=== PATIENT | male | born 1955 | race Hispanic/Latino ===

== ENCOUNTER 2018-03-10 10:41 | Day surgery (SDC) | payer MEDICARE ==
[2018-03-05 08:47] VITALS: BP 116/58
[2018-03-05 08:57] LABS: BASOPHILS % (AUTO) 0.9 % (0.0-5.0); HEMATOCRIT 37.2 % (42-54); LYMPHOCYTES % (AUTO) 22.8 % (21.0-51.0); MEAN CORPUSCULAR HEMOGLOBIN 28.1 pg (27.0-33.0); MEAN CORPUSCULAR HGB CONC 34.7 g/dL (32.0-36.0); MEAN CORPUSCULAR VOLUME 81.1 fL (79-99); MONOCYTES % (AUTO) 11.7 % (3.0-13.0); NEUTROPHILS % (AUTO) 61.6 % (40.0-77.0); PLATELET COUNT (AUTO) 51 K/uL (130-400); RED BLOOD CELL COUNT(AUTO) 4.58 MIL/uL (4.50-6.20); RED CELL DISTRIBUTION WIDTH 17.6 % (11.0-15.5); WHITE BLOOD COUNT (AUTO) 3.3 K/uL (4.8-10.8)
[2018-03-05 09:03] LABS: APPEARANCE,URINE Clear (CLEAR); BILIRUBIN,URINE Negative (NEGATIVE); COLOR,URINE Dark Yellow (YELLOW); GLUCOSE, URINE (UA) >=1000 mg/dL (NEGATIVE); KETONES,URINE Negative (NEGATIVE); LEUKOCYTE ESTERASE ,URINE Negative (NEGATIVE); NITRATE,URINE Negative (NEGATIVE); OCCULT BLOOD,URINE Trace (NEGATIVE); PROTEIN,URINE Negative (NEGATIVE)
[2018-03-05 09:04] LABS: CREATININE 0.7 mg/dL (0.5-1.5)
[2018-03-05 09:09] LABS: INR 1.17 (0.85-1.15); PARTIAL THROMBOPLASTIN TIME 30.6 SEC (26.3-35.5); PROTHROMBIN TIME 12.2 SEC (9.6-11.6)
[2018-03-05 09:41] LABS: PLATELET MORPHOLOGY COMMENT DECREASED
[2018-03-05 10:15] LABS: BACTERIA,URINE Few /HPF (None Seen); RBC,URINE 0-1 /HPF (0-1); SQUAMOUS EPITHELIAL CELL,UR 0-2 /HPF (0-2); WBC,URINE 0-1 /HPF (0-1)
[2018-03-10] VITALS (10 sets, daily range): BP systolic 100–122; BP diastolic 48–60
[~2018-03-10] VITALS: Ht 172.7 cm; Wt 112.9 kg
[~2018-03-10 10:41] MED LIST: ASPI-555 PO; BUSP10TA3 PO; CARV25TA PO; CLOT15C TP; FLUO20CA30 PO; FURO40TA7 PO; INSU100C14 SQ; INSU100I24 SQ; ISOS30TA6 PO; LATA2.5D15 OP; NITR0.4T50 SL; SPIR50TA5 PO; TRAM50TA4 PO
[2018-03-10] MEDS ORDERED: IOPAMIDOL-370 100 ML VIAL IV ONE (12:02)
[2018-03-10] MEDS ORDERED: ISOVUE-370 50ML VIAL IV ONE (12:02)
[2018-03-10] MEDS ORDERED: HEPARIN SODIUM 1000UNIT/ML 10ML VIAL ONE (12:02)
[2018-03-10] MEDS ORDERED: NITROGLYCERIN 5 MG/ML 10 ML VIAL IV ONE (12:02)
[2018-03-10] MEDS ORDERED: LIDOCAINE HCL 2% 20ML ONE (12:02)
[2018-03-10] MEDS ORDERED: TRULICITY SQ (12:05)
[2018-03-10] MEDS: SODIUM CHLORIDE 0.9% 1000ML 1,000 ML IV SCH (12:12)
[2018-03-10] MEDS ORDERED: DEXTROSE 50%-WATER 50 ML DISP.SYRIN IV PRN (13:15)
[2018-03-10] MEDS ORDERED: GLUCAGON 1MG KIT 1 MG ML IM PRN (13:15)
[2018-03-10] MEDS: INSULIN HUMULIN R 100 UNIT/ML 3ML ONE (13:47)
== END 2018-03-10 16:39 | disposition home or self-care (01) ==
LOC: DAH 10:41
PROVIDERS: ATTEND Internal Medicine Cardiovascular Disease
DX: I25.10 Atherosclerotic heart disease of native coronary artery without angina pectoris (principal); I25.82 Chronic total occlusion of coronary artery; I35.0 Nonrheumatic aortic (valve) stenosis; I10 Essential (primary) hypertension; E78.5 Hyperlipidemia, unspecified; K74.60 Unspecified cirrhosis of liver; I87.2 Venous insufficiency (chronic) (peripheral); D64.9 Anemia, unspecified; Z79.899 Other long term (current) drug therapy; Z79.82 Long term (current) use of aspirin; Z90.49 Acquired absence of other specified parts of digestive tract; Z98.890 Other specified postprocedural states
CPT/HCPCS: 36415; 71045; 80048; 81001; 82948; 85025; 85610; 85730; 93005; 93458; A4606; C1760; C1769; C1894; J1644; J1815; J3490; J7030; Q9967

== ENCOUNTER → 2018-11-26 | Outpatient (CLI) | payer MEDICARE ==
[~2018-11-26] MED LIST changes: +TRULICITY SQ
== END | disposition home or self-care (01) ==
LOC: RAH 09:53
PROVIDERS: ATTEND Internal Medicine
DX: I11.9 Hypertensive heart disease without heart failure (principal); I35.0 Nonrheumatic aortic (valve) stenosis
CPT/HCPCS: 93306

== ENCOUNTER → 2018-12-27 | Outpatient (CLI) | payer MEDICARE | END | disposition home or self-care (01) | LOC: RAH 12-23 08:42 | PROVIDERS: ATTEND Internal Medicine | DX: R16.1 Splenomegaly, not elsewhere classified (principal); Z90.49 Acquired absence of other specified parts of digestive tract | CPT/HCPCS: 76700; 93975 ==

== ENCOUNTER 2019-01-11 05:30 | Day surgery (SDC) | payer MEDICARE ==
[~2019-01-11] VITALS: Ht 172.7 cm; Wt 109.8 kg
[~2019-01-11 05:30] MED LIST changes: -CLOT15C TP; -FLUO20CA30 PO; -INSU100C14 SQ; -INSU100I24 SQ; +INSU300I SQ; -ISOS30TA6 PO; +LACT10SO8 PO; -LATA2.5D15 OP; -SPIR50TA5 PO; -TRAM50TA4 PO
[2019-01-11] MEDS ORDERED: SODIUM CHLORIDE 0.9% 1000ML 1,000 ML IV ONE (05:46)
[2019-01-11 05:59] VITALS: BP 125/55
[2019-01-11] MEDS ORDERED: BUPR300T54 PO (06:12)
[2019-01-11] MEDS ORDERED: PROPOFOL 1000 MG/100 ML 100 ML IV ONE (07:04)
[2019-01-11] MEDS ORDERED: PHENYLEPHRINE HCL 10 MG/ML 1ML VIAL IV ONE (07:22)
[2019-01-11 07:33] VITALS: BP 87/43
[2019-01-11 07:37] VITALS: BP 118/58
[2019-01-11 07:38] VITALS: BP 111/61
[2019-01-11 07:43] VITALS: BP 113/55
[2019-01-11 07:50] VITALS: BP 120/63
[2019-01-15] MEDS ORDERED: BISA5TAB12 PO (22:22)
[2019-01-15] MEDS ORDERED: FURO40TA5 PO (22:22)
[2019-01-15] MEDS ORDERED: BUPR300T54 PO (22:22)
[2019-01-15] MEDS ORDERED: BUSP5TAB3 PO (22:22)
[2019-01-15] MEDS ORDERED: ASPI-555 PO (22:22)
[2019-01-15] MEDS ORDERED: LACT10SO32 PO (22:22)
[2019-01-15] MEDS ORDERED: CARV25TA PO (22:22)
[2019-01-17] MEDS ORDERED: CARV12.511 PO (15:04)
== END 2019-01-11 08:15 | disposition home or self-care (01) ==
LOC: ENDO 05:30 → DAH 05:30 → ENDO 08:15
PROVIDERS: ATTEND Internal Medicine
DX: K63.5 Polyp of colon (principal); K64.9 Unspecified hemorrhoids; K57.30 Diverticulosis of large intestine without perforation or abscess without bleeding; K63.89 Other specified diseases of intestine; K74.60 Unspecified cirrhosis of liver; K31.89 Other diseases of stomach and duodenum; K29.50 Unspecified chronic gastritis without bleeding; K55.9 Vascular disorder of intestine, unspecified; E78.5 Hyperlipidemia, unspecified; I25.10 Atherosclerotic heart disease of native coronary artery without angina pectoris; E11.9 Type 2 diabetes mellitus without complications; D64.9 Anemia, unspecified; I10 Essential (primary) hypertension; Z79.899 Other long term (current) drug therapy
CPT/HCPCS: 43239; 45380; 82948 ×2; 88305; 93005; A4606; J2370; J2704; J7030; 43249

== ENCOUNTER → 2019-08-30 | Outpatient (CLI) | payer MEDICARE ==
[~2019-08-30] MED LIST changes: +BISA5TAB12 PO; +BUPR300T54 PO; -BUSP10TA3 PO; +BUSP5TAB3 PO; +CARV12.511 PO; -CARV25TA PO; -FURO40TA7 PO; -INSU300I SQ; +LACT10SO32 PO; -LACT10SO8 PO; -NITR0.4T50 SL; -TRULICITY SQ
== END | disposition home or self-care (01) ==
LOC: RAH 13:01
PROVIDERS: ATTEND Internal Medicine
DX: S52.502A Unspecified fracture of the lower end of left radius, initial encounter for closed fracture (principal); S52.612A Displaced fracture of left ulna styloid process, initial encounter for closed fracture; M19.032 Primary osteoarthritis, left wrist; M19.022 Primary osteoarthritis, left elbow; M19.042 Primary osteoarthritis, left hand; S62.92XD Unspecified fracture of left hand, subsequent encounter for fracture with routine healing; X58.XXXA Exposure to other specified factors, initial encounter; Y93.89 Activity, other specified; Y92.89 Other specified places as the place of occurrence of the external cause; Y99.8 Other external cause status
CPT/HCPCS: 73080; 73090; 73110; 73130

== ENCOUNTER 2019-12-20 10:51 | Observation (INO) | payer MEDICARE, OTHER ==
[~2019-12-20] VITALS: Ht 172.7 cm; Wt 107.9 kg
[~2019-12-20 10:51] MED LIST changes: -ASPI-555 PO; +ASPI-556 PO; +BUPR-317 PO; -BUPR300T54 PO
[2019-12-20] MEDS ORDERED: ZOSYN 3.375GM+NS 50ML 50 ML IV ONE (12:18)
[2019-12-20 12:28] LABS: BASOPHILS % (AUTO) 0.3 % (0.0-5.0); EOSINOPHILS % (AUTO) 2.6 % (0.0-8.0); HEMATOCRIT 34.6 % (42-54); LYMPHOCYTES % (AUTO) 16.8 % (21.0-51.0); MEAN CORPUSCULAR HEMOGLOBIN 25.6 pg (27.0-33.0); MEAN CORPUSCULAR HGB CONC 31.2 g/dL (32.0-36.0); MONOCYTES % (AUTO) 9.6 % (3.0-13.0); PLATELET COUNT (AUTO) 83 K/uL (130-400); RED BLOOD CELL COUNT(AUTO) 4.22 MIL/uL (4.50-6.20); RED CELL DISTRIBUTION WIDTH 18.1 % (11.0-15.5)
[2019-12-20 12:39] LABS: CREATININE 0.8 mg/dL (0.5-1.5); POTASSIUM 3.9 mmol/L (3.5-5.1)
[2019-12-20 12:43] LABS: ALBUMIN 2.2 g/dL (3.5-5.0); BILIRUBIN,TOTAL 2.2 mg/dL (0.2-1.0); TOTAL PROTEIN, SERUM 6.1 g/dL (6.0-8.3)
[2019-12-20 12:57] LABS: THYROID STIMULATING HORMONE 2.08 uIU/mL (0.36-3.74)
[2019-12-20 13:11] LABS: BASOPHILS % (MANUAL) 1 % (0-2); EOSINOPHILS % (MANUAL) 1 % (1-6); LYMPHOCYTES % (MANUAL) 18 % (22-44); MONOCYTES % (MANUAL) 6 % (2-9); SEGMENTED NEUTROPHILS % 74 % (40-70)
[2019-12-20 13:12] LABS: MAN.DIFF COMMENT-IMPRESSION MANUAL DIFFERENTIAL; PLATELET MORPHOLOGY COMMENT DECREASED
[2019-12-20 17:31] VITALS: BP 140/78
[2019-12-20] MEDS ORDERED: LACTULOSE 20 GM/30 ML UDCUP PO PRN (18:00)
[2019-12-20] MEDS ORDERED: NAPROXEN 250 MG TAB PO PRN (18:00)
[2019-12-20] MEDS ORDERED: NITR0.4T SL (18:04)
[2019-12-20] MEDS ORDERED: INSU200I4 SQ (18:04)
[2019-12-20] MEDS ORDERED: CARV25TA PO (18:04)
[2019-12-20] MEDS ORDERED: BUSP10TA3 PO (18:04)
[2019-12-20] MEDS ORDERED: LACT10SO9 PO (18:04)
[2019-12-20] MEDS ORDERED: NAPR220T57 PO (18:04)
[2019-12-20] MEDS ORDERED: PHARMACY COMMUNICATION MISC SCH ×3 (18:15→20:45)
[2019-12-20 20:00] VITALS: BP 128/68
[2019-12-20] MEDS: ZOSYN 3.375GM+NS 50ML 50 ML IV SCH (20:31)
[2019-12-20] MEDS: CARVEDILOL 25 MG TABLET PO SCH (20:31)
--- NOTE | 2019-12-20 20:31 | NUR ---
MEDS SHIFT ASSESSMENT DONE, PLEASE REFER TO CHART. PT COMPLAINTS OF PAINS TO LLE EXTREMITY. DUE MEDS ADMINISTERED, NAPROSYN PO GIVEN FOR PAIN. KEPT COMFORTABLE IN BED. ELEVATED LLE WITH PILLOWS. CALL LIGHT WITHIN REACH. WILL RE-ASSESS PT. Addendum: 12/21/19 at 0139 by ANGELICA BANKS RN RN Amended: Links added.
[2019-12-20] MEDS ORDERED: ACET1TAB12 PO (20:35)
[2019-12-20] MEDS ORDERED: ACETAMINOPHEN-CODEINE 300/30MG TAB PO PRN (20:45)
[2019-12-20] MEDS ORDERED: NAPROXEN 500 MG TABLET PO PRN (22:00)
--- NOTE | 2019-12-20 22:00 | NUR ---
ROUNDS PT RESTING WELL, VERBALIZES PAIN HAD SUBSIDED WITH PAIN PILL. NO DISTRESS NOTED. KEPT RESTED AND COMFORTABLE. CALL LIGHT WITHIN REACH. WILL MONITOR PT.
[2019-12-20 23:43] VITALS: BP 138/82
--- NOTE | 2019-12-21 01:20 | NUR ---
SL PT AWAKENS WHEN BENEFITS CLERK ENTERS ROOM. DENIES ANY NEEDS AT THIS TIME. IV STEPHENSYN FINISHED, SL PIV. ENCOURAGED TO GO BACK TO SLEEP. WILL MONITOR PT.
[2019-12-21 03:27] VITALS: BP 115/68
[2019-12-21] MEDS: ZOSYN 3.375GM+NS 50ML 50 ML IV SCH ×3 (04:47→21:05)
--- NOTE | 2019-12-21 04:47 | NUR ---
MEDS PT RESTING WELL. DENIES ANY NEEDS AT THIS TIME. NO DISTRESS NOTED. DUE IV MEDS HUNG. KEPT RESTED IN BED. FOR MORE CARE.
[2019-12-21 05:09] LABS: HEMATOCRIT 29.2 % (42-54); MEAN CORPUSCULAR HGB CONC 32.2 g/dL (32.0-36.0); MEAN CORPUSCULAR VOLUME 80.7 fL (79-99); PLATELET COUNT (AUTO) 67 K/uL (130-400); RED BLOOD CELL COUNT(AUTO) 3.62 MIL/uL (4.50-6.20); RED CELL DISTRIBUTION WIDTH 18.1 % (11.0-15.5); WHITE BLOOD COUNT (AUTO) 3.1 K/uL (4.8-10.8)
[2019-12-21 05:16] LABS: ALBUMIN 1.8 g/dL (3.5-5.0); BILIRUBIN,DIRECT 0.7 mg/dL (0.0-0.3); BILIRUBIN,TOTAL 1.7 mg/dL (0.2-1.0); CREATININE 0.6 mg/dL (0.5-1.5); POTASSIUM 4.2 mmol/L (3.5-5.1); TOTAL PROTEIN, SERUM 5.1 g/dL (6.0-8.3)
[2019-12-21 07:30] VITALS: BP 115/71
[2019-12-21 08:59] LABS: INR 1.11 (0.85-1.15); PARTIAL THROMBOPLASTIN TIME 32.7 SEC (26.3-35.5); PROTHROMBIN TIME 11.9 SEC (9.6-11.6)
[2019-12-21] MEDS: NITROGLYCERIN 0.4 MG SL TAB SL SCH (09:00)
[2019-12-21] MEDS: INSULIN DEGLUDEC 80 UNIT SQ SCH (09:00)
[2019-12-21] MEDS: BUSPIRONE HCL 5 MG TABLET PO SCH (10:20)
[2019-12-21] MEDS: CARVEDILOL 25 MG TABLET PO SCH ×2 (10:20→21:05)
[2019-12-21 11:14] VITALS: BP 131/74
--- NOTE | 2019-12-21 13:54 | NUR ---
CM Note: VBAIU pending approval and chair time CM met with pt discussed MD recommendations for long term abx treatments at [facility], pt agreeable, VIKAS signed for [facility]. Faxed clinicals, confirmation received. Spoke to Reema brooks/ANATAIU, received clinicals, aware MD pending to sign script and PICC, will send script and PICC info once available. Primary nurse aware. CM to cont to follow up. Lexis JARVIS Director aware of the above, pending to have Dr Trevino sign script at 2pm today. CM to cont to follow up.
[2019-12-21] MEDS ORDERED: HOME MEDICATION 1 EACH PO SCH (20:15)
[2019-12-21 20:29] VITALS: BP 135/75
[2019-12-22 00:13] VITALS: BP 146/86
[2019-12-22] MEDS: ZOSYN 3.375GM+NS 50ML 50 ML IV SCH ×3 (04:34→12:22)
[2019-12-22 04:57] VITALS: BP 136/78
[2019-12-22 07:30] VITALS: BP 129/74
[2019-12-22] MEDS: INSULIN DEGLUDEC 80 UNIT SQ SCH (08:43)
[2019-12-22] MEDS: CARVEDILOL 25 MG TABLET PO SCH (08:43)
[2019-12-22] MEDS: BUSPIRONE HCL 5 MG TABLET PO SCH (08:43)
--- NOTE | 2019-12-22 10:20 | NUR ---
unable to complete assessment Patient in shower. SW will follow up.
[2019-12-22 11:00] VITALS: BP 120/70
--- NOTE | 2019-12-22 11:20 | NUR ---
INITIAL Patient lives with mother. Emergency contact is brother, Abdulkadir Benitez, [phone]. No home health but does have PHC with [facility] X 19 hours. DME: BPM, glucometer (uses insulin). Patient is independent and drives. PCP is Dr. Armand Trevino. Pharmacy is [facility] located on [facility]. DCP is home. Patient is pending insurance approval [place] [facility] [place] [facility]. Addendum: 12/22/19 at 1122 by GLYNN LAWLER SS Amended: Links added.
[2019-12-22] MEDS: NITROGLYCERIN 0.4 MG SL TAB SL SCH (12:28)
--- NOTE | 2019-12-22 13:41 | NUR ---
CM Note: CRISTIAN CM spoke to Reema MACKEY. Pt pending pharmacy to approve IV med. Primary nurse aware. CM to cont to follow up.
[2019-12-22 16:00] VITALS: BP 139/70
--- NOTE | 2019-12-22 16:45 | NUR ---
CM Note: VBAIU denial CM spoke to Reema this afternoon, CRISTIAN denied MD recommendations for IV, per pharmacy no other recommendations at this time. Lexis JARVIS Director informed Dr Trevino. order dc to home, leave PICC in, dc w/Vantin 200mg PO BID X 10 days, follow up w/Dr Trevino tomorrow. Charge nurse made and primary nurse made aware. CM to cont to follow up.
[2019-12-22] MEDS ORDERED: CEFPODOXIME 200 MG (18:50)
== END 2019-12-22 19:20 | disposition home or self-care (01) ==
LOC: EDH 10:51 → EDHIP 11:30 → 3DH 15:25
PROVIDERS: ADMIT Internal Medicine; ATTEND Internal Medicine
DX: L03.116 Cellulitis of left lower limb (principal); E11.9 Type 2 diabetes mellitus without complications; E78.5 Hyperlipidemia, unspecified; K70.30 Alcoholic cirrhosis of liver without ascites; K72.90 Hepatic failure, unspecified without coma; D61.818 Other pancytopenia; D73.1 Hypersplenism; I25.10 Atherosclerotic heart disease of native coronary artery without angina pectoris; F41.1 Generalized anxiety disorder; J44.9 Chronic obstructive pulmonary disease, unspecified; I35.0 Nonrheumatic aortic (valve) stenosis; K76.6 Portal hypertension
CPT/HCPCS: 36415 ×2; 73590; 80048 ×2; 80076 ×2; 82140; 82948 ×9; 84443; 85025; 85027; 85610; 85730; 96365; 96366 ×3; 99284; A4510; C1894; G0378 ×14; J2543 ×7

== ENCOUNTER 2020-04-24 11:23 | Inpatient (IN) | payer OTHER ==
[~2020-04-24] VITALS: Ht 170.2 cm; Wt 108.0 kg
[~2020-04-24 11:23] MED LIST changes: +ACET1TAB12 PO; -ASPI-556 PO; -BISA5TAB12 PO; -BUPR-317 PO; +BUSP10TA3 PO; -BUSP5TAB3 PO; -CARV12.511 PO; +CARV25TA PO; +INSU200I4 SQ; -LACT10SO32 PO; +LACT10SO9 PO; +NAPR220T57 PO; +NITR0.4T SL
[2020-04-24] MEDS ORDERED: ONDANSETRON HCL 4 MG/2 ML VIAL ONE (12:12)
[2020-04-24] MEDS ORDERED: METHYLPREDNISOLONE SOD SUCC 40MG/ML 1ML ONE (12:12)
[2020-04-24] MEDS ORDERED: CEFTRIAXONE SODIUM 2 GM VIAL ONE (12:13)
[2020-04-24 12:14] LABS: BASOPHILS % (AUTO) 0.5 % (0.0-5.0); HEMATOCRIT 32.4 % (42-54); LYMPHOCYTES % (AUTO) 16.6 % (21.0-51.0); MEAN CORPUSCULAR HEMOGLOBIN 26.7 pg (27.0-33.0); MEAN CORPUSCULAR HGB CONC 33.3 g/dL (32.0-36.0); MEAN CORPUSCULAR VOLUME 80.2 fL (79-99); MONOCYTES % (AUTO) 16.6 % (3.0-13.0); NEUTROPHILS % (AUTO) 65.4 % (40.0-77.0); PLATELET COUNT (AUTO) 44 K/uL (130-400); RED BLOOD CELL COUNT(AUTO) 4.04 MIL/uL (4.50-6.20); RED CELL DISTRIBUTION WIDTH 18.6 % (11.0-15.5); WHITE BLOOD COUNT (AUTO) 2.2 K/uL (4.8-10.8)
[2020-04-24 12:27] LABS: INR 1.21 (0.85-1.15); PARTIAL THROMBOPLASTIN TIME 37.5 SEC (26.3-35.5)
[2020-04-24 12:40] LABS: APPEARANCE,URINE Clear (CLEAR); BILIRUBIN,URINE Negative (NEGATIVE); COLOR,URINE Dark Yellow (YELLOW); GLUCOSE, URINE (UA) 250 mg/dL (NEGATIVE); KETONES,URINE Negative (NEGATIVE); LEUKOCYTE ESTERASE ,URINE Large (NEGATIVE); NITRATE,URINE Negative (NEGATIVE); OCCULT BLOOD,URINE Moderate (NEGATIVE); PH,URINE 6.5 (5.0-8.0); PROTEIN,URINE POS 1+ mg/dL (NEGATIVE)
[2020-04-24 12:48] LABS: BACTERIA,URINE Rare /HPF (None Seen); RBC,URINE 0-1 /HPF (0-1); SQUAMOUS EPITHELIAL CELL,UR Few /HPF (0-2)
[2020-04-24 13:13] LABS: CARBON DIOXIDE 23 mmol/L (21-32); CHLORIDE 100 mmol/L (101-111); CREATININE 0.7 mg/dL (0.5-1.5); GLOMERULAR FILTR. RATE CALC 120 mL/min (>60); GLUCOSE,RANDOM 228 mg/dL (70-105); POTASSIUM 3.4 mmol/L (3.5-5.1); SODIUM SERUM 133 mmol/L (136-145); UREA NITROGEN, BLOOD 9 mg/dL (7-18)
[2020-04-24 13:14] LABS: BAND NEUTROPHILS % (MANUAL) 4 % (0-2); BASOPHILS % (MANUAL) 1 % (0-2); LYMPHOCYTES % (MANUAL) 6 % (22-44); MONOCYTES % (MANUAL) 13 % (2-9); SEGMENTED NEUTROPHILS % 76 % (40-70)
[2020-04-24 13:15] LABS: MAN.DIFF COMMENT-IMPRESSION MANUAL DIFFERENTIAL
[2020-04-24 13:24] LABS: ALANINE AMINOTRANSFERASE 41 U/L (12-78); ASPARTATE AMINOTRANSFERASE 88 U/L (10-37); BILIRUBIN,TOTAL 2.7 mg/dL (0.2-1.0); CREATINE KINASE, TOTAL 300 U/L (21-232); MYOGLOBIN 100 ng/mL (10-92); TOTAL PROTEIN, SERUM 5.5 g/dL (6.0-8.3); TROPONIN I < 0.04 ng/mL (0.00-0.06)
[2020-04-24] MEDS ORDERED: NITROGLYCERIN 0.4 MG SL TAB SL ONE (14:34)
[2020-04-24] MEDS ORDERED: ENOXAPARIN SODIUM 100 MG/1 ML SQ ONE (15:38)
[2020-04-24] MEDS ORDERED: ENOXAPARIN SODIUM 100 MG/1 ML SQ SCH (16:45)
[2020-04-24] MEDS ORDERED: ENOXAPARIN SODIUM 30 MG/0.3 ML SQ ONE (17:30)
[2020-04-24] MEDS ORDERED: GLUCAGON 1MG KIT 1 MG ML IM PRN (18:45)
[2020-04-24] MEDS ORDERED: DEXTROSE 50%-WATER 50 ML DISP.SYRIN IV PRN (18:45)
[2020-04-24] MEDS: INSULIN HUMULIN R 100 UNIT/ML 3ML SQ SCH (21:00)
[2020-04-24] MEDS: AZITHROMYCIN 500MG+NS 250ML 250 ML IV SCH (21:00)
[2020-04-24] MEDS ORDERED: AZITHROMYCIN 500MG+NS 250ML 250 ML IV ONE (21:30)
[2020-04-24] MEDS ORDERED: FUROSEMIDE 10 MG/ML 4ML VIAL ONE (21:30)
[2020-04-24] MEDS ORDERED: INSULIN HUMULIN R 100 UNIT/ML 3ML ONE (21:31)
[2020-04-25] MEDS ORDERED: NITROGLYCERIN 1GM/1 INCH PACKET TD ONE ×3 (00:03→07:44)
[2020-04-25 04:36] LABS: CREATININE 0.7 mg/dL (0.5-1.5); POTASSIUM 3.8 mmol/L (3.5-5.1)
[2020-04-25 04:37] LABS: B-TYPE NATRIURETIC PEPTIDE 130 pg/mL (0-100)
[2020-04-25 04:38] LABS: HEMATOCRIT 28.6 % (42-54); LYMPHOCYTES % (AUTO) 11.6 % (21.0-51.0); MEAN CORPUSCULAR HEMOGLOBIN 26.5 pg (27.0-33.0); MEAN CORPUSCULAR HGB CONC 32.9 g/dL (32.0-36.0); MEAN CORPUSCULAR VOLUME 80.6 fL (79-99); NEUTROPHILS % (AUTO) 74.9 % (40.0-77.0); PLATELET COUNT (AUTO) 47 K/uL (130-400); RED BLOOD CELL COUNT(AUTO) 3.55 MIL/uL (4.50-6.20); RED CELL DISTRIBUTION WIDTH 18.3 % (11.0-15.5); WHITE BLOOD COUNT (AUTO) 2.1 K/uL (4.8-10.8)
[2020-04-25 04:50] LABS: ABG BASE EXCESS -2.4 mmol/L (-2.0-3.0); ABG HCO3 22.1 mmol/L (21.0-28.0); ABG OXYGEN SATURATION 97.5 % (95.0-99.0); ABG PCO2 38 mmHg (35-48)
[2020-04-25] MEDS ORDERED: FUROSEMIDE 10 MG/ML 2ML VIAL IVP SCH (07:30)
[2020-04-25] MEDS ORDERED: NITROGLYCERIN 1GM/1 INCH PACKET TD SCH (07:30)
[2020-04-25] MEDS: INSULIN HUMULIN R 100 UNIT/ML 3ML SQ SCH ×4 (07:30→21:00)
[2020-04-25] MEDS ORDERED: ENOXAPARIN SODIUM 40 MG/0.4 ML SYRINGE SQ ONE ×2 (07:44→20:27)
[2020-04-25] MEDS ORDERED: ENOXAPARIN SODIUM 40 MG/0.4 ML SYRINGE SQ SCH (09:00)
[2020-04-25] MEDS ORDERED: INSULIN HUMULIN R 100 UNIT/ML 3ML ONE ×2 (09:44→18:26)
[2020-04-25] MEDS: FUROSEMIDE 10 MG/ML 2ML VIAL IVP SCH ×2 (15:15→23:15)
[2020-04-25] MEDS: CEFTRIAXONE SODIUM 1 GM IVP SCH (15:15)
[2020-04-25] MEDS ORDERED: CEFTRIAXONE SODIUM 1 GM ONE (15:39)
[2020-04-25] MEDS ORDERED: FUROSEMIDE 10 MG/ML 4ML VIAL ONE (15:39)
--- NOTE | 2020-04-25 16:26 | NUR ---
RE: PARACENTESIS PATIENT COVID-19 POSITIVE AND SCHEDULED FOR PARACENTESIS. DR Wade FAGAN NOTIFIED AND CANCELED PROCEDURE. PARACENTESIS NOT TO BE DONE BY RADIOLOGY. PROCEDURE OUTCOME REPORTED TO MAN GOMEZ.
[2020-04-25] MEDS ORDERED: ERGOCALCIFEROL (VITAMIN D2) 50,000 UNIT CAPSULE PO ONE (18:15)
[2020-04-25] MEDS ORDERED: FAMOTIDINE 20MG TAB 20 MG TAB ONE (20:27)
[2020-04-25] MEDS ORDERED: AZITHROMYCIN 500MG+NS 250ML 250 ML IV ONE (20:28)
[2020-04-25] MEDS: AZITHROMYCIN 500MG+NS 250ML 250 ML IV SCH (21:00)
[2020-04-25] MEDS: INSULIN GLARGINE 100 UNITS/ML 10 ML VIAL SQ SCH (21:00)
[2020-04-25] MEDS: ENOXAPARIN SODIUM 40 MG/0.4 ML SYRINGE SQ SCH (21:00)
[2020-04-25] MEDS: FAMOTIDINE 20MG TAB 20 MG TAB PO SCH (21:00)
[2020-04-26] MEDS ORDERED: ONDANSETRON HCL 4 MG/2 ML VIAL ONE (01:50)
[2020-04-26 03:26] LABS: BASOPHILS % (AUTO) 0.1 % (0.0-5.0); HEMATOCRIT 31.1 % (42-54); LYMPHOCYTES % (AUTO) 3.6 % (21.0-51.0); MEAN CORPUSCULAR HEMOGLOBIN 26.3 pg (27.0-33.0); MEAN CORPUSCULAR HGB CONC 33.1 g/dL (32.0-36.0); MEAN CORPUSCULAR VOLUME 79.5 fL (79-99); MONOCYTES % (AUTO) 6.9 % (3.0-13.0); NEUTROPHILS % (AUTO) 88.5 % (40.0-77.0); PLATELET COUNT (AUTO) 59 K/uL (130-400); RED BLOOD CELL COUNT(AUTO) 3.91 MIL/uL (4.50-6.20); RED CELL DISTRIBUTION WIDTH 18.3 % (11.0-15.5); WHITE BLOOD COUNT (AUTO) 6.9 K/uL (4.8-10.8)
[2020-04-26 03:31] LABS: HEMOGLOBIN A1C 9.5 % (4.0-6.0)
[2020-04-26 03:43] LABS: CREATININE 0.8 mg/dL (0.5-1.5); MAGNESIUM 1.4 mg/dL (1.80-2.40); POTASSIUM 3.3 mmol/L (3.5-5.1)
[2020-04-26] MEDS ORDERED: ACETAMINOPHEN 325 MG TAB ONE (03:46)
[2020-04-26] MEDS ORDERED: NITROGLYCERIN 0.4 MG SL TAB SL ONE (05:41)
[2020-04-26] MEDS ORDERED: NITROGLYCERIN 1GM/1 INCH PACKET TD ONE ×2 (05:42→08:05)
[2020-04-26] MEDS: FUROSEMIDE 10 MG/ML 2ML VIAL IVP SCH ×3 (07:15→23:15)
[2020-04-26] MEDS: INSULIN HUMULIN R 100 UNIT/ML 3ML SQ SCH ×4 (07:30→21:00)
[2020-04-26] MEDS ORDERED: FUROSEMIDE 10 MG/ML 4ML VIAL ONE ×3 (08:04→20:52)
[2020-04-26] MEDS ORDERED: ZINC SULFATE 220 CAPSULE ONE (08:04)
[2020-04-26] MEDS ORDERED: DEXAMETHASONE SOD PHOSPHATE 4 MG/ML 1ML VIAL ONE (08:04)
[2020-04-26] MEDS ORDERED: ASCORBIC ACID 500 MG TAB ONE (08:04)
[2020-04-26] MEDS ORDERED: CEFTRIAXONE SODIUM 1 GM ONE (08:05)
[2020-04-26] MEDS ORDERED: FAMOTIDINE/PF 20 MG/2 ML VIAL IV ONE ×2 (08:05→20:53)
[2020-04-26] MEDS ORDERED: ENOXAPARIN SODIUM 40 MG/0.4 ML SYRINGE SQ ONE ×2 (08:05→20:52)
[2020-04-26] MEDS: ZINC SULFATE 220 CAPSULE PO SCH (09:00)
[2020-04-26] MEDS: ENOXAPARIN SODIUM 40 MG/0.4 ML SYRINGE SQ SCH ×2 (09:00→21:00)
[2020-04-26] MEDS: FAMOTIDINE 20MG TAB 20 MG TAB PO SCH ×2 (09:00→21:00)
[2020-04-26] MEDS: DEXAMETHASONE SOD PHOSPHATE 4 MG/ML 1ML VIAL IVP SCH (09:00)
[2020-04-26] MEDS: ASCORBIC ACID 500 MG TAB PO SCH (09:00)
--- NOTE | 2020-04-26 12:19 | NUR ---
SPOKE TO BROTHGARY DOSHI ON THE PHONE FOR DC PLANNING, STATES PATIENT LIVES WITH MOTHER AND SIBLING; HAS BEEN DISABLED SECOND TO CIRRHOSIS FOR SOME TIME, AND HAS HAD DECREASING FUNCTION RECENTLY. STATES MOTHER/BROTHER ALSO SICK. ON THEIR WAY TO [place] TODAY TO GET TESTED. STATES PREVIOUSLY PATIENT USED NO DME, AND WAS DRIVING. ASKED IF [place] HAS EVER BEEN TALKED TO ABOUT HOSPICE OR ADVANCE DIRECTIVES, GLENDA STATES IS AWARE PT "HAS PRETTY BAD PROBLEMS WITH HIS LIVER" ADVISED GLENDA THAT PATIENT'S PHONE GOES TO VOICE MAIL, STATES HE IS NOT SURE PATIENT HAS CHARGED, GAVE INFO ON HOW TO DROP OFF TO PATIENT TO ENSURE CONTINUED FUNCTION OF PERSONAL CELL PHONE, ADVISED [facility] DOES NOT PROVIDE CHARGERS FOR PATIENTS DCP AT THIS TIME IS HOME, CONDITION IS GUARDED Addendum: 04/27/20 at 1412 by SUZY HUYNH RN CM Amended: Links added.
[2020-04-26] MEDS ORDERED: INSULIN HUMULIN R 100 UNIT/ML 3ML ONE ×2 (14:15→20:54)
[2020-04-26] MEDS: CEFTRIAXONE SODIUM 1 GM IVP SCH (15:15)
[2020-04-26] MEDS ORDERED: AZITHROMYCIN 500MG+NS 250ML 250 ML IV ONE (20:52)
[2020-04-26] MEDS: INSULIN GLARGINE 100 UNITS/ML 10 ML VIAL SQ SCH (21:00)
[2020-04-26] MEDS: AZITHROMYCIN 500MG+NS 250ML 250 ML IV SCH (21:00)
[2020-04-27] MEDS: FUROSEMIDE 10 MG/ML 2ML VIAL IVP SCH ×3 (07:15→23:15)
[2020-04-27] MEDS: INSULIN HUMULIN R 100 UNIT/ML 3ML SQ SCH ×4 (07:30→21:00)
[2020-04-27] MEDS ORDERED: ASCORBIC ACID 500 MG TAB ONE (08:14)
[2020-04-27] MEDS ORDERED: DEXAMETHASONE SOD PHOSPHATE 4 MG/ML 5ML VIAL ONE (08:15)
[2020-04-27] MEDS ORDERED: CEFTRIAXONE SODIUM 1 GM ONE (08:15)
[2020-04-27] MEDS ORDERED: ZINC SULFATE 220 CAPSULE ONE (08:15)
[2020-04-27] MEDS: DEXAMETHASONE SOD PHOSPHATE 4 MG/ML 1ML VIAL IVP SCH (09:00)
[2020-04-27] MEDS: FAMOTIDINE 20MG TAB 20 MG TAB PO SCH ×2 (09:00→21:00)
[2020-04-27] MEDS: ZINC SULFATE 220 CAPSULE PO SCH (09:00)
[2020-04-27] MEDS: ASCORBIC ACID 500 MG TAB PO SCH (09:00)
[2020-04-27] MEDS: ENOXAPARIN SODIUM 40 MG/0.4 ML SYRINGE SQ SCH ×2 (09:00→21:00)
[2020-04-27] MEDS ORDERED: ENOXAPARIN SODIUM 80 MG/0.8 ML SQ ONE (10:15)
[2020-04-27] MEDS ORDERED: FUROSEMIDE 10 MG/ML 4ML VIAL ONE ×3 (10:15→21:51)
[2020-04-27] MEDS: NITROGLYCERIN 1GM/1 INCH PACKET TD SCH ×2 (12:00→18:00)
[2020-04-27] MEDS ORDERED: INSULIN HUMULIN R 100 UNIT/ML 3ML ONE ×2 (13:13→20:30)
[2020-04-27 14:44] LABS: ABG BASE EXCESS 4.3 mmol/L (-2.0-3.0); ABG HCO3 27.4 mmol/L (21.0-28.0); ABG OXYGEN SATURATION 86.1 % (95.0-99.0); ABG PCO2 36 mmHg (35-48)
[2020-04-27] MEDS: CEFTRIAXONE SODIUM 1 GM IVP SCH (15:15)
[2020-04-27] MEDS ORDERED: ENOXAPARIN SODIUM 40 MG/0.4 ML SYRINGE SQ ONE (20:28)
[2020-04-27] MEDS ORDERED: AZITHROMYCIN 500MG+NS 250ML 250 ML IV ONE (20:28)
[2020-04-27] MEDS ORDERED: FAMOTIDINE/PF 20 MG/2 ML VIAL IV ONE (20:29)
[2020-04-27] MEDS: INSULIN GLARGINE 100 UNITS/ML 10 ML VIAL SQ SCH (21:00)
[2020-04-27] MEDS: AZITHROMYCIN 500MG+NS 250ML 250 ML IV SCH (21:00)
--- NOTE | 2020-04-27 22:45 | NUR ---
REPORT RECEIVED BY CORIN CONWAY FROM ER. PT ADMITTED FOR CHF, COVID. AND IS THROMBOCYTOPENIC
[2020-04-27 23:26] VITALS: BP 121/63
--- NOTE | 2020-04-27 23:30 | NUR ---
PT ARRIVED TO FLOOR. ON BIPAP. NO DISTRESS NOTED. PT ABLE TO STATE CONCERNS. REQUIRES ASSISTANCE. HAS BRUISING TO RIGHT FLANK AREA DUE TO LOVENOX INJECTION AND PT HAS LOW PLT COUNT. O2 LEVEL 89%. ON BIPAP. DESATS WHEN MOVING.
[2020-04-28] VITALS: BP 104/60
--- NOTE | 2020-04-28 03:27 | NUR ---
AT THIS TIME OBTAINED CONSENT FOR CONVALESCENT PLASMA. [facility] CONSENT AND [facility] [employer] CONSENT FOR FACILITY.
[2020-04-28 04:00] VITALS: BP 103/56
[2020-04-28 04:23] LABS: ABG BASE EXCESS 6.5 mmol/L (-2.0-3.0); ABG HCO3 29.7 mmol/L (21.0-28.0); ABG OXYGEN SATURATION 89.2 % (95.0-99.0); ABG PCO2 38 mmHg (35-48)
--- NOTE | 2020-04-28 05:00 | NUR ---
PLASMA STARTED AT THIS TIME. PT AWARE. NEW IVS IN PLACE. LOW GRADE FEVER. 99.9. DECREASE TO 98.9
[2020-04-28] MEDS ORDERED: SODIUM CHLORIDE 0.9% 250 ML IV ONE (05:08)
[2020-04-28] MEDS: NITROGLYCERIN 1GM/1 INCH PACKET TD SCH ×4 (06:10→17:57)
[2020-04-28] MEDS: FUROSEMIDE 10 MG/ML 2ML VIAL IVP SCH ×3 (06:11→23:17)
[2020-04-28] MEDS: INSULIN HUMULIN R 100 UNIT/ML 3ML SQ SCH ×4 (06:19→20:30)
[2020-04-28 06:25] LABS: HEMATOCRIT 31.9 % (42-54); LYMPHOCYTES % (AUTO) 5.4 % (21.0-51.0); MEAN CORPUSCULAR HEMOGLOBIN 26.4 pg (27.0-33.0); MEAN CORPUSCULAR HGB CONC 31.7 g/dL (32.0-36.0); MEAN CORPUSCULAR VOLUME 83.3 fL (79-99); MONOCYTES % (AUTO) 9.5 % (3.0-13.0); NEUTROPHILS % (AUTO) 84.1 % (40.0-77.0); PLATELET COUNT (AUTO) 49 K/uL (130-400); RED BLOOD CELL COUNT(AUTO) 3.83 MIL/uL (4.50-6.20); RED CELL DISTRIBUTION WIDTH 19.1 % (11.0-15.5); WHITE BLOOD COUNT (AUTO) 2.9 K/uL (4.8-10.8)
[2020-04-28 07:05] LABS: ALBUMIN 1.7 g/dL (3.5-5.0); BILIRUBIN,TOTAL 2.1 mg/dL (0.2-1.0); CREATININE 0.8 mg/dL (0.5-1.5); MAGNESIUM 1.6 mg/dL (1.80-2.40); PHOSPHORUS 2.8 mg/dL (2.5-4.9); POTASSIUM 3.2 mmol/L (3.5-5.1); TOTAL PROTEIN, SERUM 5.2 g/dL (6.0-8.3)
[2020-04-28 07:41] LABS: BAND NEUTROPHILS % (MANUAL) 2 % (0-2); LYMPHOCYTES % (MANUAL) 2 % (22-44); MAN.DIFF COMMENT-IMPRESSION MANUAL DIFFERENTIAL; MONOCYTES % (MANUAL) 4 % (2-9); SEGMENTED NEUTROPHILS % 92 % (40-70)
[2020-04-28 08:02] VITALS: BP 104/50
[2020-04-28] MEDS: FAMOTIDINE 20MG TAB 20 MG TAB PO SCH ×2 (08:24→20:29)
[2020-04-28] MEDS: ZINC SULFATE 220 CAPSULE PO SCH (08:25)
[2020-04-28] MEDS: ASCORBIC ACID 500 MG TAB PO SCH (08:25)
[2020-04-28] MEDS: DEXAMETHASONE SOD PHOSPHATE 4 MG/ML 1ML VIAL IVP SCH (08:25)
[2020-04-28] MEDS: ENOXAPARIN SODIUM 40 MG/0.4 ML SYRINGE SQ SCH (09:00)
--- NOTE | 2020-04-28 10:30 | NUR ---
1030 SPOKE WITH LAB, NOTIFICATION GIVEN THAT PT'S ONLY RECEIVING ONE UNIT OF PLASMA. PT UPDATED, MOTORIZED SQUAD SERGEANT IS AWARE. Addendum: 04/28/20 at 1806 by VONDA GARCIA RN RN 1630 COVERING MD ROUNDED, NEW ORDERS GIVEN. SEE ORDER HISTORY.
[2020-04-28 12:03] VITALS: BP 104/61
[2020-04-28] MEDS: CEFTRIAXONE SODIUM 1 GM IVP SCH (15:28)
[2020-04-28 16:03] VITALS: BP 111/60
[2020-04-28] MEDS: POLYETHYLENE GLYCOL 3350 17 GM POWD.PACK PO SCH (20:29)
[2020-04-28] MEDS: AZITHROMYCIN 500MG+NS 250ML 250 ML IV SCH (20:29)
[2020-04-28] MEDS: INSULIN GLARGINE 100 UNITS/ML 10 ML VIAL SQ SCH (20:31)
[2020-04-28 22:00] VITALS: BP 104/55
[2020-04-29] VITALS (27 sets, daily range): BP systolic 82–128; BP diastolic 50–77
[2020-04-29 04:41] LABS: HEMATOCRIT 29.7 % (42-54); LYMPHOCYTES % (AUTO) 4.3 % (21.0-51.0); MEAN CORPUSCULAR HEMOGLOBIN 26.3 pg (27.0-33.0); MEAN CORPUSCULAR HGB CONC 31.6 g/dL (32.0-36.0); MEAN CORPUSCULAR VOLUME 83.2 fL (79-99); MONOCYTES % (AUTO) 10.2 % (3.0-13.0); NEUTROPHILS % (AUTO) 84.2 % (40.0-77.0); PLATELET COUNT (AUTO) 50 K/uL (130-400); RED BLOOD CELL COUNT(AUTO) 3.57 MIL/uL (4.50-6.20); RED CELL DISTRIBUTION WIDTH 18.6 % (11.0-15.5); WHITE BLOOD COUNT (AUTO) 2.4 K/uL (4.8-10.8)
[2020-04-29 04:57] LABS: INR 1.31 (0.85-1.15); PARTIAL THROMBOPLASTIN TIME 36.3 SEC (26.3-35.5)
[2020-04-29 05:01] LABS: ALBUMIN 1.7 g/dL (3.5-5.0); BILIRUBIN,TOTAL 1.7 mg/dL (0.2-1.0); CREATININE 0.8 mg/dL (0.5-1.5)
[2020-04-29] MEDS: NITROGLYCERIN 1GM/1 INCH PACKET TD SCH ×4 (06:55→18:35)
[2020-04-29] MEDS: FUROSEMIDE 10 MG/ML 2ML VIAL IVP SCH ×3 (06:55→22:55)
[2020-04-29] MEDS: INSULIN HUMULIN R 100 UNIT/ML 3ML SQ SCH ×4 (07:03→21:30)
[2020-04-29] MEDS: DEXAMETHASONE SOD PHOSPHATE 4 MG/ML 1ML VIAL IVP SCH (08:08)
[2020-04-29] MEDS: POLYETHYLENE GLYCOL 3350 17 GM POWD.PACK PO SCH ×2 (08:08→21:00)
[2020-04-29] MEDS: ZINC SULFATE 220 CAPSULE PO SCH (08:09)
[2020-04-29] MEDS: ASCORBIC ACID 500 MG TAB PO SCH (08:09)
[2020-04-29] MEDS: FAMOTIDINE 20MG TAB 20 MG TAB PO SCH ×2 (08:09→21:00)
[2020-04-29] MEDS ORDERED: POTASSIUM CHLORIDE 20 MEQ ERTAB PO ONE ×2 (08:12→11:19)
[2020-04-29] MEDS ORDERED: MAGNESIUM 2GM PREMIX 50ML 50 ML IV ONE (11:18)
[2020-04-29] MEDS: CEFTRIAXONE SODIUM 1 GM IVP SCH (15:20)
[2020-04-29] MEDS ORDERED: LIDOCAINE HCL-MPF 1% 2ML VIAL ONE (15:22)
[2020-04-29] MEDS ORDERED: BISACODYL 10 MG SUPP.RECT RC ONE (15:40)
[2020-04-29] MEDS ORDERED: BISACODYL 10 MG SUPP.RECT RC SCH (15:45)
[2020-04-29] MEDS: LIDOCAINE HCL-MPF 1% 2ML VIAL IV PRN (15:45)
[2020-04-29] MEDS ORDERED: BISACODYL 10 MG SUPP.RECT RC PRN (15:45)
[2020-04-29] MEDS: POTASSIUM CHLORIDE 20MEQ/100ML 100 ML IV PRN (15:46)
[2020-04-29] MEDS ORDERED: ONDANSETRON HCL 4 MG/2 ML VIAL ONE (20:52)
[2020-04-29] MEDS: AZITHROMYCIN 500MG+NS 250ML 250 ML IV SCH (21:01)
[2020-04-29] MEDS: INSULIN GLARGINE 100 UNITS/ML 10 ML VIAL SQ SCH (21:32)
[2020-04-29] MEDS ORDERED: SODIUM CHLORIDE 0.9% 1000ML 1,000 ML IV ONE (23:14)
[2020-04-30] VITALS (11 sets, daily range): BP systolic 108–142; BP diastolic 54–102
[2020-04-30] MEDS: NITROGLYCERIN 1GM/1 INCH PACKET TD SCH ×5 (00:07→23:36)
[2020-04-30 04:04] LABS: BASOPHILS % (AUTO) 0.1 % (0.0-5.0); HEMATOCRIT 36.8 % (42-54); LYMPHOCYTES % (AUTO) 2.3 % (21.0-51.0); MEAN CORPUSCULAR HEMOGLOBIN 26.3 pg (27.0-33.0); MEAN CORPUSCULAR HGB CONC 31.5 g/dL (32.0-36.0); MEAN CORPUSCULAR VOLUME 83.4 fL (79-99); MONOCYTES % (AUTO) 4.2 % (3.0-13.0); NEUTROPHILS % (AUTO) 92.7 % (40.0-77.0); PLATELET COUNT (AUTO) 140 K/uL (130-400); RED BLOOD CELL COUNT(AUTO) 4.41 MIL/uL (4.50-6.20); RED CELL DISTRIBUTION WIDTH 19.4 % (11.0-15.5); WHITE BLOOD COUNT (AUTO) 10.6 K/uL (4.8-10.8)
[2020-04-30 04:26] LABS: CREATININE 0.8 mg/dL (0.5-1.5); MAGNESIUM 1.7 mg/dL (1.80-2.40); PHOSPHORUS 4.1 mg/dL (2.5-4.9); POTASSIUM 3.6 mmol/L (3.5-5.1)
[2020-04-30] MEDS: INSULIN HUMULIN R 100 UNIT/ML 3ML SQ SCH ×4 (07:30→20:37)
--- NOTE | 2020-04-30 08:30 | NUR ---
ASSESSMENT ENCOUNTERED PT LAYING ON RT SIDE, A&OX3, WITH BIPAP, C/O NAUSEA, ABDOMINAL DISCOMFORT, DISTENTION AND INABILITY TO LAY FLAT, PT DOES HAVE LOOSE STOOLS AND ABLE TO ASSIST WITH TURNING. ORAL CARE PERFORMED WITH REMOVAL OF DRY BLOOD TO TEETH AND GUMS, PT IS ABLE TO TOLERATE SMALL SIPS OF FLUID WITH NO THROAT CLEARING OR COUGH. PT KEEP BIPAP IN PLACE, CALL LIGHT WITHIN REACH.
[2020-04-30] MEDS ORDERED: ONDANSETRON HCL 4 MG/2 ML VIAL ONE ×2 (08:52→13:45)
[2020-04-30] MEDS: FUROSEMIDE 10 MG/ML 2ML VIAL IVP SCH (08:59)
[2020-04-30] MEDS: ASCORBIC ACID 500 MG TAB PO SCH ×2 (08:59→09:00)
[2020-04-30] MEDS: CEFTRIAXONE SODIUM 1 GM IVP SCH (08:59)
[2020-04-30] MEDS: FAMOTIDINE 20MG TAB 20 MG TAB PO SCH (09:00)
[2020-04-30] MEDS: ZINC SULFATE 220 CAPSULE PO SCH (09:00)
[2020-04-30] MEDS: POLYETHYLENE GLYCOL 3350 17 GM POWD.PACK PO SCH ×3 (09:00→18:36)
[2020-04-30] MEDS: DEXAMETHASONE SOD PHOSPHATE 10MG/ML 1ML VIAL IVP SCH (09:00)
--- NOTE | 2020-04-30 10:30 | NUR ---
DR MARSHALL AT BEDSIDE UPDATE GIVEN, ORDERS RECEIVED, NO PARACENTESIS AT THIS TIME.
[2020-04-30] MEDS: FAMOTIDINE/PF 20 MG/2 ML VIAL IV SCH ×2 (13:15→20:35)
[2020-04-30] MEDS ORDERED: LACTULOSE 20 GM/30 ML UDCUP ONE (13:36)
[2020-04-30] MEDS ORDERED: FAMOTIDINE/PF 20 MG/2 ML VIAL IV ONE (13:39)
[2020-04-30] MEDS: FUROSEMIDE 10 MG/ML 4ML VIAL IV SCH (17:06)
[2020-04-30] MEDS: MAGNESIUM 2GM PREMIX 50ML 50 ML IV PRN (18:10)
[2020-04-30] MEDS: LACTULOSE 20 GM/30 ML UDCUP PO SCH (20:35)
[2020-04-30] MEDS: AZITHROMYCIN 500MG+NS 250ML 250 ML IV SCH (20:35)
[2020-04-30] MEDS: INSULIN GLARGINE 100 UNITS/ML 10 ML VIAL SQ SCH (20:36)
[2020-05-01] VITALS (35 sets, daily range): BP systolic 75–150; BP diastolic 48–111
[2020-05-01 03:54] LABS: HEMATOCRIT 36.7 % (42-54); MEAN CORPUSCULAR HEMOGLOBIN 26.4 pg (27.0-33.0); MEAN CORPUSCULAR HGB CONC 31.1 g/dL (32.0-36.0); NUCLEATED RED BLOOD CELLS 0.3 % (0.0-0.19); RED BLOOD CELL COUNT(AUTO) 4.32 MIL/uL (4.50-6.20); RED CELL DISTRIBUTION WIDTH 19.9 % (11.0-15.5); WHITE BLOOD COUNT (AUTO) 17.4 K/uL (4.8-10.8)
[2020-05-01] MEDS: FUROSEMIDE 10 MG/ML 4ML VIAL IV SCH (04:09)
--- NOTE | 2020-05-01 04:18 | NUR ---
ROUNDS PATIENT RESTING IN BED WITH OU CLOSED. EASILY AROUSED. EXTRA TIME NEEDED TO VOICE NEEDS. NO COMPLAINTS OF PAIN VOICED AT THIS TIME. VITALS STABLE. LOW GRADE TEMP AT 100.1. RESP EVEN AND UNLABORED. NO SOB NOTED. CONTINUES WITH BIPAP. PATIENT WILL AT TIMES ATTEMPT TO TAKE OFF BIPAP REDIRECTED PATIENT THE IMPORTANCE OF KEEPING BIPAP ON. PATIENT VERBALIZES UNDERSTANDING. HE STATES "I JUST WANT TO GET BETTER". TOTAL CARE RENDERED Q2H AND PRN. REPOSITIONED FOR COMFORT. SIDE RAILS UP X3. HOB ELEVATED. NO SIGNS OR DISTRESS NOTED. WILL CONTINUE TO BE OBSERVED. Addendum: 05/01/20 at 9972 by MELCHOR CHANG RN RN Amended: Links added.
[2020-05-01 04:26] LABS: ALBUMIN 1.8 g/dL (3.5-5.0); BILIRUBIN,TOTAL 3.2 mg/dL (0.2-1.0); CREATININE 1.2 mg/dL (0.5-1.5); MAGNESIUM 2.3 mg/dL (1.80-2.40); POTASSIUM 3.4 mmol/L (3.5-5.1); TOTAL PROTEIN, SERUM 5.1 g/dL (6.0-8.3)
[2020-05-01] MEDS: POTASSIUM CHLORIDE 20MEQ/100ML 100 ML IV PRN (04:36)
[2020-05-01] MEDS: LIDOCAINE HCL-MPF 1% 2ML VIAL IV PRN (04:36)
[2020-05-01] MEDS: NITROGLYCERIN 1GM/1 INCH PACKET TD SCH ×3 (05:31→18:00)
[2020-05-01] MEDS: INSULIN HUMULIN R 100 UNIT/ML 3ML SQ SCH ×4 (05:48→21:00)
[2020-05-01] MEDS: DEXAMETHASONE SOD PHOSPHATE 10MG/ML 1ML VIAL IVP SCH (09:00)
[2020-05-01] MEDS: FAMOTIDINE/PF 20 MG/2 ML VIAL IV SCH ×2 (09:00→21:43)
[2020-05-01] MEDS: POLYETHYLENE GLYCOL 3350 17 GM POWD.PACK PO SCH ×2 (09:00→21:00)
[2020-05-01] MEDS: ASCORBIC ACID 500 MG TAB PO SCH (09:00)
[2020-05-01] MEDS: LACTULOSE 20 GM/30 ML UDCUP PO SCH ×2 (09:00→21:43)
[2020-05-01] MEDS: ZINC SULFATE 220 CAPSULE PO SCH (09:00)
[2020-05-01] MEDS ORDERED: MIDAZOLAM HCL 1 MG/ML 2ML VIAL ONE (10:30)
[2020-05-01] MEDS ORDERED: FENTANYL CITRATE PF 50 MCG/1 ML 2ML VIAL ONE (10:31)
[2020-05-01] MEDS ORDERED: FENTANYL 2500MCG+NS 250ML 250 ML IV ONE (10:31)
[2020-05-01] MEDS ORDERED: FENTANYL CITRATE PF 0.05 MG/ML 1,000 MCG in SODIUM CHLORIDE 0.9% 100 ML IVPB SCH (11:00)
[2020-05-01] MEDS ORDERED: MIDAZOLAM 50MG-0.9% NS 50ML 50 ML BAG IV SCH (11:00)
[2020-05-01] MEDS ORDERED: PHARMACY COMMUNICATION MISC SCH (11:00)
--- NOTE | 2020-05-01 11:00 | NUR ---
DR. MARSHALL HERE AND ASSESSED PT AND WILL INTUBATE PATIENT AND SEDATE NEEDED.
[2020-05-01 12:32] LABS: INR 2.11 (0.85-1.15); PARTIAL THROMBOPLASTIN TIME 37.6 SEC (26.3-35.5); PROTHROMBIN TIME 22.1 SEC (9.6-11.6)
[2020-05-01] MEDS ORDERED: FENTANYL CITRATE PF 50 MCG/1 ML 2ML VIAL IVP ONE (12:45)
[2020-05-01] MEDS ORDERED: ETOMIDATE 2 MG/ML 10 ML VIAL IVP ONE (12:45)
[2020-05-01] MEDS ORDERED: SUCCINYLCHOLINE CHLORIDE 20 MG/ML 10 ML VIAL IVP ONE (12:45)
[2020-05-01] MEDS ORDERED: MIDAZOLAM HCL 1 MG/ML 2ML VIAL IV ONE (12:45)
[2020-05-01] MEDS ORDERED: SODIUM CHLORIDE 0.9% 1000ML 1,000 ML IV ONE (13:04)
[2020-05-01 13:05] LABS: ABG BASE EXCESS 4.9 mmol/L (-2.0-3.0); ABG HCO3 28.1 mmol/L (21.0-28.0); ABG OXYGEN SATURATION 97.1 % (95.0-99.0); ABG PCO2 37 mmHg (35-48)
[2020-05-01] MEDS ORDERED: NOREPINEPHRINE 4MG/NS 250ML 250 ML IV SCH (13:15)
[2020-05-01] MEDS ORDERED: NOREPINEPHRINE 4MG/NS 250ML 250 ML IV ONE (13:21)
[2020-05-01] MEDS ORDERED: ROCURONIUM BROMIDE 100 MG in SODIUM CHLORIDE 0.9% 100 ML IV SCH (15:00)
--- NOTE | 2020-05-01 15:00 | NUR ---
OBTAINED CONSENT FOR PICC LINE, COAGS WERE APPROPRIATE FOR PICC LINE INSERTION.
[2020-05-01] MEDS ORDERED: ROCURONIUM BROMIDE 250 MG in SODIUM CHLORIDE 0.9% 250 ML IV SCH (15:36)
[2020-05-01] MEDS ORDERED: ACETAMINOPHEN 650 MG SUPPOSITORY RC ONE (17:10)
[2020-05-01] MEDS ORDERED: NOREPINEPHRINE BITARTRATE 32 MG in SODIUM CHLORIDE 0.9% 250 ML IV SCH (17:45)
[2020-05-01] MEDS ORDERED: SODIUM CHLORIDE 0.9% 500ML 500 ML IV ONE (18:00)
[2020-05-01] MEDS ORDERED: VANCOMYCIN PROTOCOL PER PHARMACY IV SCH (18:00)
[2020-05-01] MEDS: CEFTRIAXONE SODIUM 1 GM IVP SCH (18:24)
[2020-05-01] MEDS ORDERED: VANCOMYCIN 2 GM in SODIUM CHLORIDE 0.9% 500ML 500 ML IV ONE (18:45)
[2020-05-01] MEDS ORDERED: NOREPINEPHRINE IV ONE (21:04)
[2020-05-01] MEDS ORDERED: [UNRECOGNIZED DRUG - OTHER] IV ONE (21:04)
[2020-05-01] MEDS: INSULIN GLARGINE 100 UNITS/ML 10 ML VIAL SQ SCH (21:53)
[2020-05-01] MEDS ORDERED: SODIUM CHLORIDE 0.9% 250 ML IV ONE (22:52)
[2020-05-01] MEDS: ACETAMINOPHEN 325 MG TAB PO PRN (23:25)
[2020-05-02] VITALS (42 sets, daily range): BP systolic 66–183; BP diastolic 45–115
[2020-05-02] MEDS: MIDAZOLAM 50MG-0.9% NS 50ML 50 ML IV SCH (00:21)
[2020-05-02] MEDS: NITROGLYCERIN 1GM/1 INCH PACKET TD SCH ×5 (05:32→23:49)
[2020-05-02] MEDS: VANCOMYCIN 1GM+NS 250ML 250 ML IV SCH ×2 (06:02→18:28)
[2020-05-02] MEDS: INSULIN HUMULIN R 100 UNIT/ML 3ML SQ SCH ×4 (06:43→20:17)
[2020-05-02] MEDS ORDERED: SODIUM POLYSTYRENE SULFONATE 15 GM/60 ML ML ONE (08:15)
[2020-05-02] MEDS: POLYETHYLENE GLYCOL 3350 17 GM POWD.PACK PO SCH ×2 (09:00→20:17)
[2020-05-02] MEDS: FAMOTIDINE/PF 20 MG/2 ML VIAL IV SCH ×2 (10:18→20:16)
[2020-05-02] MEDS: FENTANYL 2500MCG+NS 250ML 250 ML IV SCH (10:18)
[2020-05-02] MEDS: LACTULOSE 20 GM/30 ML UDCUP PO SCH ×2 (10:19→20:17)
[2020-05-02] MEDS: DEXAMETHASONE SOD PHOSPHATE 10MG/ML 1ML VIAL IVP SCH (10:19)
[2020-05-02] MEDS: ZINC SULFATE 220 CAPSULE PO SCH (10:20)
[2020-05-02] MEDS: ASCORBIC ACID 500 MG TAB PO SCH (10:20)
[2020-05-02] MEDS ORDERED: ACETAMINOPHEN 650 MG SUPPOSITORY RC ONE ×2 (12:04→18:18)
--- NOTE | 2020-05-02 13:46 | NUR ---
RDSCREEN - LOS X 8 Pt admitted with Viral PNA, Fluid Overload. Current ARF, septic shock as per EMR. Pt intubated, Tube feedings required. Recommend continuous Vital AF 1.2 initiated at 15mls/hr. Goal rate 45mls/hr. Recommend Flushes 155 Q4hrs. Faxed to Lynda RN notified. RD to continue to monitor. Please notify as additional nutrition concerns arise. Thank you.
[2020-05-02] MEDS: CEFTRIAXONE SODIUM 1 GM IVP SCH (15:15)
--- NOTE | 2020-05-02 15:30 | NUR ---
SPOKE WITH PATIENT'S BROTHER GLENDA CAO AND GAVE AN UPDATE ON PT'S PRESENT STATUS AND ASKED ABOUT DNR STATUS AND WAS ADVISED THAT THE OLDEST SON WOULD BE THE ONE TO MAKE THE DECISION ON DNR. SPOKE WITH THE SON AND HE ADVISED NURSING STAFF THAT HIS DAD DID NOT WANT TO BE RESUSCITATED AND SAID HE COULD BE A DNR.
--- NOTE | 2020-05-02 16:25 | NUR ---
SON'S PHONE NUMBER WAS VERIFIED WITH SON [phone]. TO PLEASE NOTIFY HIM OF ANY CHANGES AND IN CASE OF DEMISE.
[2020-05-02] MEDS: ACETAMINOPHEN 325 MG TAB PO PRN (20:17)
[2020-05-02] MEDS: INSULIN GLARGINE 100 UNITS/ML 10 ML VIAL SQ SCH (20:17)
--- NOTE | 2020-05-02 21:00 | NUR ---
Alycia Sandhu POWDER NIPPER called for tachycardia and hypotension. Orders received and carried out.
[2020-05-02] MEDS ORDERED: VASOPRESSIN 20 UNITS in SODIUM CHLORIDE 0.9% 100 ML IV SCH (21:15)
[2020-05-02] MEDS: POTASSIUM CHLORIDE 20MEQ/100ML 100 ML IV PRN (21:17)
[2020-05-02] MEDS: MAGNESIUM 2GM PREMIX 50ML 50 ML IV PRN (21:18)
[2020-05-02] MEDS: SODIUM CHLORIDE 0.9% 1000ML 1,000 ML IV SCH (21:54)
[2020-05-03] VITALS (10 sets, daily range): BP systolic 75–99; BP diastolic 28–74
[2020-05-03] MEDS: MIDAZOLAM 50MG-0.9% NS 50ML 50 ML IV SCH ×2 (01:51→08:30)
[2020-05-03] MEDS: SODIUM CHLORIDE 0.9% 1000ML 1,000 ML IV SCH (02:30)
--- NOTE | 2020-05-03 03:00 | NUR ---
Patient placed in supine position at 0300. Tolerated well.
--- NOTE | 2020-05-03 03:16 | NUR ---
Primary nurse called Alexa Julien ART SPECIALIST for no blood pressure on patient. no new orders given. ART SPECIALIST stated that there isn't much else to do in terms of interventions. Patient appears comfortable at this time.
[2020-05-03 03:57] LABS: HEMATOCRIT 41.2 % (42-54); MEAN CORPUSCULAR HGB CONC 27.7 g/dL (32.0-36.0); MEAN CORPUSCULAR VOLUME 97.4 fL (79-99); NUCLEATED RED BLOOD CELLS 8.8 % (0.0-0.19); PLATELET COUNT (AUTO) 124 K/uL (130-400); RED BLOOD CELL COUNT(AUTO) 4.23 MIL/uL (4.50-6.20); RED CELL DISTRIBUTION WIDTH 21.7 % (11.0-15.5)
[2020-05-03 04:04] LABS: WHITE BLOOD COUNT (AUTO) 32.4 K/uL (4.8-10.8)
[2020-05-03 04:14] LABS: ALBUMIN 1.3 g/dL (3.5-5.0); BILIRUBIN,TOTAL 3.4 mg/dL (0.2-1.0); MAGNESIUM 2.8 mg/dL (1.80-2.40); POTASSIUM 5.7 mmol/L (3.5-5.1); TOTAL PROTEIN, SERUM 4.3 g/dL (6.0-8.3)
[2020-05-03 04:18] LABS: BAND NEUTROPHILS % (MANUAL) 7 % (0-2); LYMPHOCYTES % (MANUAL) 1 % (22-44); METAMYELOCYTES % 2 % (0-0); MONOCYTES % (MANUAL) 2 % (2-9); SEGMENTED NEUTROPHILS % 88 % (40-70)
[2020-05-03 04:19] LABS: MAN.DIFF COMMENT-IMPRESSION MANUAL DIFFERENTIAL; PLATELET MORPHOLOGY COMMENT SLIGHTLY DECREASED
[2020-05-03] MEDS: VANCOMYCIN 1GM+NS 250ML 250 ML IV SCH (06:00)
[2020-05-03] MEDS: NITROGLYCERIN 1GM/1 INCH PACKET TD SCH (06:00)
--- NOTE | 2020-05-03 07:20 | NUR ---
DR. MARSHALL HERE AND WAS ADVISED OF PT'S PRESENT DIFFICULTY IN GETTING A BLOOD PRESSURE AND ADVISED OF VASOPRESSIN STARTED LAST NIGHT.
[2020-05-03] MEDS: INSULIN HUMULIN R 100 UNIT/ML 3ML SQ SCH (07:30)
[2020-05-03] MEDS ORDERED: SODIUM CHLORIDE 0.9% 500ML 500 ML IV ONE (07:45)
[2020-05-03] MEDS: FAMOTIDINE/PF 20 MG/2 ML VIAL IV SCH (08:29)
[2020-05-03] MEDS: ZINC SULFATE 220 CAPSULE PO SCH (08:30)
[2020-05-03] MEDS: ASCORBIC ACID 500 MG TAB PO SCH (08:30)
[2020-05-03] MEDS: LACTULOSE 20 GM/30 ML UDCUP PO SCH (08:30)
[2020-05-03] MEDS: FENTANYL 2500MCG+NS 250ML 250 ML IV SCH (08:31)
[2020-05-03] MEDS: POLYETHYLENE GLYCOL 3350 17 GM POWD.PACK PO SCH (08:33)
[2020-05-03] MEDS: DEXAMETHASONE SOD PHOSPHATE 10MG/ML 1ML VIAL IVP SCH (08:35)
--- NOTE | 2020-05-03 11:15 | NUR ---
PT'S SON WAS CALLED AND ADVISED OF PT'S STATUS AND ASKED CONCERNING THE WITHDRAWAL OF LIFE SUPPORT. MEJIA ARORA RN CHARGE NURSE WAS ASKED TO CONFIRM THE SON SAYING THAT HE AGREED WITH THE WITHDRAWAL AND ALLOWED TO ASK QUESTIONS. SON TO SEND THE POWER OF LEGAL DOCUMENT SPECIALIST VIA TEXT TO MEJIA TO VERIFY THAT HE HAD POWER OF LEGAL DOCUMENT SPECIALIST. PAPERWORK WAS OBTAINED AND SON WAS ADVISED THAT HE WOULD BE NOTIFIED IF AND WHEN THE PATIENT WOULD DEMISE.
--- NOTE | 2020-05-03 11:30 | NUR ---
PT WENT INTO V. FIB AND ASYSTOLE PRIOR TO BEING EXTUBATED OR [email or web address] DC'D. NOTIFIED DR. MARSHALL AND HE WILL HAVE TO PRONOUNCE THE PATIENT DUE TO PATIENT STILL INTUBATED AND ON VENTILATOR.
[2020-05-03] MEDS ORDERED: NITROGLYCERIN 1GM/1 INCH PACKET TD SCH (12:00)
--- NOTE | 2020-05-03 13:50 | NUR ---
DR. PEDERSON FROM ER PRONOUNCED PT AND ADVISED THE TIME OF ASYSTOLE AND KAY WAS NOTIFIED ALSO TIME OF . SPOKE WITH SON AND ADVISED THE TIME OF AND ASKED FOR HOME AND WILL DISCUSS BELONGINGS WITH BROTHER AND TO SEND BELONGINGS TO SECURITY ( PHONE, SERVICE TRANSFORMER REPAIR SUPERVISOR, AND EXTENSION CORD, HOME MEDS. BROTHER WAS ADVISED OF THE CLOTHES AND HE STATED THAT HE WANTED TO CLOTHES TO BE THROWN OUT AND TO PLEASE SANITIZE HIS PHONE AND SERVICE TRANSFORMER REPAIR SUPERVISOR.)
--- NOTE | 2020-05-03 15:55 | NUR ---
BODY PREPARED TO SEND TO [facility]. AND BROTHER AWARE OF BELONGINGS WITH SECURITY.
--- NOTE | 2020-05-03 17:20 | NUR ---
PT WAS TAK[facility] AND FAMILY MEMBERS WERE ADVISED.
== END 2020-05-03 11:35 | disposition expired | DRG 208 ==
LOC: EDH 11:23 → EDHIP 18:23 → 2CV 04-27 23:27
PROVIDERS: ADMIT Internal Medicine; ATTEND Internal Medicine
PROC: 5A09457 Assistance with Respiratory Ventilation, 24-96 Consecutive Hours, Continuous Positive Airway Pressure (ICD-10-PCS; 2020-04-27)
PROC: 30233K1 Transfusion of Nonautologous Frozen Plasma into Peripheral Vein, Percutaneous Approach (ICD-10-PCS; 2020-04-28)
PROC: 5A1945Z Respiratory Ventilation, 24-96 Consecutive Hours (ICD-10-PCS; principal; 2020-05-01)
PROC: 0BH17EZ Insertion of Endotracheal Airway into Trachea, Via Natural or Artificial Opening (ICD-10-PCS; 2020-05-01)
PROC: 05HB33Z Insertion of Infusion Device into Right Basilic Vein, Percutaneous Approach (ICD-10-PCS; 2020-05-01)
DX: U07.1 COVID-19 (principal); J12.89 Other viral pneumonia; J96.01 Acute respiratory failure with hypoxia; A41.89 Other specified sepsis; R65.21 Severe sepsis with septic shock; J44.0 Chronic obstructive pulmonary disease with (acute) lower respiratory infection; N30.00 Acute cystitis without hematuria; K76.6 Portal hypertension; J44.1 Chronic obstructive pulmonary disease with (acute) exacerbation; D63.8 Anemia in other chronic diseases classified elsewhere; E66.01 Morbid (severe) obesity due to excess calories; B95.1 Streptococcus, group B, as the cause of diseases classified elsewhere; E11.9 Type 2 diabetes mellitus without complications; I10 Essential (primary) hypertension; K70.31 Alcoholic cirrhosis of liver with ascites; I25.10 Atherosclerotic heart disease of native coronary artery without angina pectoris; E78.5 Hyperlipidemia, unspecified; E87.70 Fluid overload, unspecified; Z87.891 Personal history of nicotine dependence; Z66 Do not resuscitate
CPT/HCPCS: 31500; 36415; 36600; 71045; 80048; 80053; 80202; 81001; 82140; 82435; 82550; 82728; 82803; 82947; 82948; 83036; 83605; 83735; 83874; 83880; 84100; 84132; 84145; 84295; 84484; 85018; 85025; 85027; 85378; 85384; 85610; 85730; 86900; 86901; 86927; 87040; 87088; 93005; 94002; 94003; 94660; G0378; J0330; J0456; J0696; J1100; J1650; J1815; J1940; J2250; J2405; J2920; J3010; J3370; J3475; J3480; J3490; J7030; J7040; J7050; J7070; U0003